=== PATIENT | male | born 1985 | race Caucasian/White ===

== ENCOUNTER 2017-05-10 22:28 | Emergency (ER) | payer OTHER ==
[~2017-05-10] VITALS: Ht 177.8 cm; Wt 125.0 kg
[~2017-05-10 22:28] MED LIST: ASMTWH INH; BULKCRY PO; ECHINACEA PO; FOLIC ACID PO; MULTTAB PO; OMEGCAP2 PO; PROTEIN DRINK PO; SERT1TAB68 PO
[2017-05-10 22:46] VITALS: PULSE 114; TEMP 36.7; Ht 177.8 cm; Wt 125.0 kg
[2017-05-10] MEDS ORDERED: SERT-234 PO (23:26)
[2017-05-10] MEDS ORDERED: FEXO1TAB49 PO (23:28)
[2017-05-10] MEDS ORDERED: LISI10TA PO (23:29)
[2017-05-10] MEDS ORDERED: ATOR10TA88 PO (23:30)
--- NOTE | 2017-05-11 00:17 | EMERGENCY ROOM VISIT NOTE ---
History Report prepared by Thais: Trang Horton Under the Supervision of: Dr. Lolis Daniels D.O. First contact with patient: 22:51 Chief Complaint: MENTAL HEALTH EVALUATION Stated Complaint: DEPRESSION History of Present Illness The patient is a 32 year old male who presents to the Emergency Room for a mental health evaluation. The patient states that he has been feeling down lately. He notes that he has a history of mood changes that are affected seasonally. He reports that nothing prompted this episode of depression. He notes that he has seen someone in the past for depression but he has not seen anyone for a while. The patient states that he has been taking sertraline to treat his depression for 5-6 years. When he first started taking the medication , he was administered 50 mg per day. About 4 years ago, his dosage increased to 100 mg per day. The patient reports that the medication does seem to help his depression. The patient states that he has not had thoughts about hurting himself recently. He notes that the last time he had thoughts of hurting himself was when he was involved with alcohol and drugs. He states that he has stopped using all drugs and alcohol except chewing tobacco. The patient reports that he has never had thoughts of hurting other people. He states that he primarily came to the ED to talk about what has been going on since he does prefer to talk about it with friends. The patient denies any recent illness or injury. Source of History: patient Onset: [employer] Position: other (global) Quality: other (depression) Timing: other (persistent) Review of Systems Pt denies headache, change in vision, fevers, chest pain, shortness of breath, nausea, vomiting, diarrhea, pain with urination, and melena. Past Medical & Surgical Medical Problems: (1) Asthma (2) Depression (3) Drug overdose - suicide (4) Suicide attempt Social History Smoking Status: Never Smoker Smokeless Tobacco Use: Yes Alcohol Use: occasionally Drug Use: other Marital Status: single Housing Status: lives alone Occupation Status: unemployed Current/Historical Medications Scheduled Atorvastatin (Lipitor), 10 MG PO DAILY Fexofenadine Hcl (Akiko Allergy), 1 TAB PO DAILY Lisinopril (Prinivil), 10 MG PO DAILY Mometasone Furoate (Asmanex Twisthaler *), 2 PUFF INH QPM Multivitamins/Minerals (Mvi With Minerals), 1 TAB PO DAILY [place]-3 Fatty Acids (Fish Oil), 1 CAP PO DAILY Sertraline (Zoloft), 100 MG PO DAILY Allergies Coded Allergies: Dust Mite Extract (Unverified Allergy, Mild, 05/10/17) Sulfa Drugs (Unverified Allergy, Mild, 05/10/17) Physical Exam Vital Signs Date Time Temp Pulse Resp B/P (MAP) Pulse Ox O2 Delivery O2 Flow Rate FiO2 05/11/17 00:24 16 161/90 97 05/10/17 22:46 36.7 114 20 161/97 95 Room Air Physical Exam GENERAL: alert, well appearing, well nourished, no distress, non-toxic EYE EXAM: normal conjunctiva, PERRL and EOM's grossly intact OROPHARYNX: no exudate, no erythema, lips, buccal mucosa, and tongue normal and mucous membranes are moist NECK: supple, no nuchal rigidity, no adenopathy, non-tender LUNGS: Clear to auscultation. Normal chest wall mechanics HEART: no murmurs, S1 normal and S2 normal ABDOMEN: abdomen soft, non-tender, normo-active bowel sounds, no masses, no rebound or guarding. BACK: Back is symmetrical on inspection and there is no deformity, no midline tenderness, no CVA tenderness. SKIN: no rashes and no bruising UPPER EXTREMITIES: upper extremities are grossly normal. LOWER EXTREMITIES: No pitting edema. NEURO EXAM: Normal sensorium, cranial nerves II-XII [grossly] intact, normal speech, no [gross] weakness of arms, no [gross] weakness of legs. [Gross sensation intact.] PSYCH: Positive depression. No SI/HI. No hallucinations. Medical Decision & Procedures Laboratory Results Test 05/10/17 23:00 Urine Opiates Screen NEG (NEG) Urine Methadone, Qualitative NEG (NEG) Urine Barbiturates NEG (NEG) Urine Phencyclidine (PCP) Level NEG (NEG) Ur Amphetamine/Methamphetamine NEG (NEG) MDMA (Ecstasy) Screen NEG (NEG) Urine Benzodiazepines Screen NEG (NEG) Urine Cocaine Metabolite NEG (NEG) Urine Marijuana (THC) NEG (NEG) Laboratory results per my review. ED Course 2251: The patient was evaluated in room A5. A complete history and physical exam was performed. 7382: Upon reevaluation, the patient is feeling better. I discussed the findings and the treatment plan with the patient. He verbalizes agreement and understanding. He will be discharged home. Medical Decision Differential diagnosis: Etiologies such as mood disorder, infection, hypoglycemia, electrolyte abnormalities, cardiac sources, intracerebral event, toxicologic, neurologic, as well as others were entertained. Patient well-appearing here despite complaints. I do not feel patient's limited risk to himself or others. Doubt other concurrent organic pathology, toxidrome, no clinical suspicion for overdose or additional ingestion. Patient given additional resources by psych immigration case worker. Discussed symptoms to watch and return for, he verbalized understanding was agreeable with plan. Medication Reconcilliation Current Medication List: was personally reviewed by me Blood Pressure Screening Patient's blood pressure: Elevated blood pressure Blood pressure disposition: Elevated BP felt to be situational Impression Primary Impression: Depression Scribe Attestation The scribe's documentation has been prepared under my direction and personally reviewed by me in its entirety. I confirm that the note above accurately reflects all work, treatment, procedures, and medical decision making performed by me. Departure Information Dispostion Home / Self-Care Referrals Jones Gutierrez (PCP) Patient Instructions My [facility] Additional Instructions Please follow up with the recommendations made by the immigration case worker. If you have any worsening symptoms or new concerns, please return the emergency room. Please continue your regular medications as prescribed.
[2017-05-11 00:22] LABS: BENZODIAZEPINE, URINE NEG (NEG); COCAINE,URINE NEG (NEG); PHENCYCLIDINE, URINE NEG (NEG)
[2017-05-11 00:24] VITALS: BP 161/90; O2SAT 97
== END 2017-05-11 00:24 | disposition home or self-care (01) ==
LOC: C.EDB 22:29 → C.EDA 05-11 00:24
DX: F32.9 Major depressive disorder, single episode, unspecified (principal); J45.909 Unspecified asthma, uncomplicated; Z91.5 Personal history of self-harm; F17.220 Nicotine dependence, chewing tobacco, uncomplicated; Z79.899 Other long term (current) drug therapy

== ENCOUNTER → 2017-09-02 | Outpatient (CLI) | payer OTHER ==
[~2017-09-02] MED LIST changes: +ATOR10TA82 PO; -BULKCRY PO; -ECHINACEA PO; +FEXO1TAB49 PO; -FOLIC ACID PO; +LISI10TA PO; -PROTEIN DRINK PO; +SERT-234 PO; -SERT1TAB68 PO
--- NOTE | 2017-09-06 10:03 | POLYSOMNOGRAPH REPORT ---
CLINICAL DATA: A 32-year-old male who has a history of snoring, enlarged tonsils, restricted airway and a long soft palate, is referred for a home sleep apnea test. On the evening of 09/03/2017, a home sleep apnea test was performed using a [employer] type 3 monitor. RECORDING RESULTS: Total recording time was 10 hours. The patient's monitoring time and estimated sleep time was 4.1 hours. RESPIRATORY DATA: Moderate sleep apnea was documented. The JIM was 20.5. There were 31 obstructive, 6 mixed and 4 central apneic episodes. There were 42 hypopneic episodes; the longest respiratory event was 42 seconds. OXIMETRY DATA: Nocturnal hypoxemia was seen. Oxygen kris was 79%. Mean saturation was 94%. Time below 89% was 6 minutes. HEART RATE DATA: Heart rates ranged from 43-71 beats per minute. SNORING DATA: Snoring was recorded throughout the night. IMPRESSION: Moderate sleep apnea/hypopnea with respiratory event index of 20.5 with oxygen kris of 79%. RECOMMENDATIONS: The patient may benefit from use of an oral appliance, use of auto-CPAP or repeat sleep study with CPAP. Sleep medicine consultation may be of benefit. Clinical correlation is needed. LENI
== END | disposition home or self-care (01) ==
LOC: C.NEUR 13:05
PROVIDERS: ATTEND Dentist Oral and Maxillofacial Surgery
DX: G47.30 Sleep apnea, unspecified (principal)